=== PATIENT | male | born 1975 | race Caucasian/White ===

== ENCOUNTER → 2019-11-20 | Outpatient (CLI) | payer OTHER ==
--- NOTE | 2019-11-20 08:49 | RAD ---
PROCEDURE: KNEE LEFT 2V STUDY DATE: 11/20/2019 CLINICAL INDICATION / HISTORY: Left knee pain. TECHNIQUE: AP and lateral views of the left knee were obtained. COMPARISON: None FINDINGS: Normal mineralization. Post-ACL graft repair surgical changes are present. Moderate tricompartmental degenerative changes with osteophytic spurring and joint space narrowing most conspicuous in the medial compartment are noted. There is a large joint effusion. No abnormal soft tissue gas. No acute fracture. No malalignment.. No bony erosions. 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 Electronically signed by: Jt Corona MD (11/20/2019 8:46 AM) [facility]
== END | disposition home or self-care (01) ==
LOC: RAD 08:16
PROVIDERS: ATTEND Surgery
DX: M17.12 Unilateral primary osteoarthritis, left knee (principal); M25.462 Effusion, left knee; M25.762 Osteophyte, left knee
CPT/HCPCS: 73560